=== PATIENT | female | born 1985 | race Caucasian/White ===

== ENCOUNTER 2018-07-24 18:08 | Emergency (ER) | payer OTHER ==
[~2018-07-24] VITALS: Ht 167.6 cm; Wt 131.5 kg
[2018-07-24] MEDS ORDERED: NABUMETONE 750750 M1 PO (18:42)
[2018-07-24] MEDS ORDERED: CENTANY30 GM TOP (18:43)
[2018-07-24 20:14] VITALS: BP 128/64
== END 2018-07-24 20:15 | disposition home or self-care (01) ==
LOC: M.ERS 18:08
DX: S80.11XA Contusion of right lower leg, initial encounter (principal); W16.031A Fall into swimming pool striking wall causing drowning and submersion, initial encounter; Y92.89 Other specified places as the place of occurrence of the external cause; Y93.89 Activity, other specified; Y99.8 Other external cause status